=== PATIENT | female | born 1955 | race Caucasian/White ===

== ENCOUNTER 2020-02-01 13:24 | Inpatient (IN) ==
[2020-02-01] MEDS ORDERED: STERILE WATER INJ. INJ ONE ×2 (13:44→17:14)
[2020-02-01] MEDS ORDERED: GEODON IM ONE ×2 (13:44→17:14)
[2020-02-01 14:07] LABS: BASO# 0.03 X1000 (0.0-0.2); BASO% 0.2 % (0.0-0.8); EOS# 0.36 X1000 (0.0-0.7); EOS% 2.5 % (0.0-10.0); HEMATOCRIT 42.1 % (37.0-47.0); HEMOGLOBIN 13.6 g/dL (12.0-16.0); IMM GRAN# 0.07 X1000 (0.0-0.04); IMM GRAN% 0.5 % (0.0-0.5); LYMPH# 4.02 X1000 (1.2-3.4); LYMPH% 27.9 % (20.5-51.1); MCH 26.9 PG (27-31); MCHC 32.3 g/dL (33-37); MCV 83.4 FL (81-99); MONO% 8.3 % (1.7-9.3); NEUT# 8.71 X1000 (1.4-6.5); NEUT% 60.6 % (42.2-75.2); PLT 297 X1000 (130-400); RBC 5.05 XMIL (4.2-5.4); RDW 14.5 % (11.5-14.5); WBC 14.39 X1000 (4.8-10.8)
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
[2020-02-01 14:33] LABS: ACETAMINOPHEN < 1.2 ug/mL (10-30); AGAP 13; ALBUMIN 3.8 g/dL (3.5-5.0); ALKALINE PHOSPHATASE 103 U/L (32-104); BUN 12 mg/dL (8-22); CALCIUM 9.6 mg/dL (8.8-10.2); CHLORIDE 105 mmol/L (98-107); COSMO 277; CREATININE 0.4 mg/dL (0.5-0.9); ESTIMATED GFR > 60; GLUCOSE 92 mg/dL (70-104); GOT 13 U/L (10-30); GPT 14 U/L (10-36); POTASSIUM 4.1 mmol/L (3.5-5.1); SALICYLATES < 3.00 mg/dL (3-10); SODIUM 139 mmol/L (136-145); TCO2 21 mmol/L (25-35); TOTAL BILIRUBIN < 0.15 mg/dL (0.20-1.00); TOTAL PROTEIN 7.3 g/dL (6.3-8.3)
[2020-02-01 15:00] LABS: FREE T4 0.99 ng/dL (0.93-1.70); TSH 1.23 uIUmL (0.27-4.20)
--- NOTE | 2020-02-01 15:05 | Diag Imaging Result Doc PS360 ---
EXAM: CT HEAD W/O CONTRAST - 02/01/2020 HISTORY: AMS, psych? TECHNIQUE: CT head without contrast COMPARISON: 04/29/2019 FINDINGS: There is no evidence of intracranial hemorrhage, mass effect, midline shift, or hydrocephalus. There is no evidence of infarct, although acute infarcts may not be immediately visible. There is no evidence of skull fracture. Visualized portions of paranasal sinuses and mastoid air cells appear clear. IMPRESSION: No visible acute intracranial abnormality. No hemorrhage or mass effect. This exam was performed using automated exposure control, adjustment of mA or kV according to patient size, and/or use of iterative reconstruction technique. Electronically signed by Chan [employer] 02/01/2020 3:03 PM
--- NOTE | 2020-02-01 15:13 | Diag Imaging Result Doc PS360 ---
EXAM: PELVIS - 02/01/2020 HISTORY: decubitus ulcer R buttocks TECHNIQUE: AP pelvis one view COMPARISON: 04/29/2019 left hip FINDINGS: There is subtrochanteric amputation of the left femur similar to prior. There is chronic deformity of the left inferior ramus. There are no acute erosive or destructive changes identified. There is no fracture identified. IMPRESSION: Subtrochanteric amputation of left femur. Chronic deformity of left inferior pubic ramus. No visible acute bony abnormality. Electronically signed by Chan Tamayo 02/01/2020 3:11 PM
--- NOTE | 2020-02-01 15:16 | Diag Imaging Result Doc PS360 ---
EXAM: CHEST-1 VIEW - 02/01/2020 HISTORY: AMS, psych med clearance TECHNIQUE: One view chest COMPARISON: 04/29/2019 FINDINGS: The projection is somewhat lordotic. Heart size appears within normal limits. There are apparent mild COPD changes. There is mild prominence of infrahilar markings on the left. There is no dense consolidation, pleural effusion, or pneumothorax identified. IMPRESSION: Mild COPD changes. Mild infrahilar infiltrate or scarring on the left. Electronically signed by Chan Tamayo 02/01/2020 3:13 PM
[2020-02-01] MEDS ORDERED: ATIVAN PO ONE (16:08)
[2020-02-01] MEDS ORDERED: ROCEPHIN 1 GM in NS 50 ML IV ONE (16:10)
[2020-02-01 16:56] LABS: UR AMPHETAMINES QUAL NONE DETECTED (NONE DETECT); UR BARBITUATES QUAL NONE DETECTED (NONE DETECT); UR BENZODIAZEPIN QUAL PRESUMPTIVE POSITIVE (NONE DETECT); UR CANNABINOIDS QUAL NONE DETECTED (NONE DETECT); UR COCAINE QUAL NONE DETECTED (NONE DETECT); UR METHADONE QUAL NONE DETECTED (NONE DETECT); UR METHAMPHETAMINE QUAL NONE DETECTED (NONE DETECT); UR OPIATES QUAL NONE DETECTED (NONE DETECT); UR OXYCODONE QUAL PRESUMPTIVE POSITIVE (NONE DETECT); UR PCP QUAL NONE DETECTED (NONE DETECT); UR PROPOXYPHENE QUAL NONE DETECTED (NONE DETECT); UR TCA QUAL NONE DETECTED (NONE DETECT)
[2020-02-01 18:01] LABS: URINE SOURCE CATH
[2020-02-01 18:03] LABS: BILIRUBIN URINE NEGATIVE (NEGATIVE); BLOOD URINE NEGATIVE (NEGATIVE); COLOR YELLOW; GLUCOSE URINE NEGATIVE (NEGATIVE); KETONE URINE NEGATIVE (NEGATIVE); LEUKOCYTES URINE SMALL (NEGATIVE); NITRITE URINE NEGATIVE (NEGATIVE); PH URINE 7.5; PROTEIN URINE NEGATIVE (NEGATIVE); TURBIDITY URINE CLEAR (CLEAR); UROBILINOGEN URINE NORMAL (NORMAL)
[2020-02-01 18:05] LABS: UR EPITHELIAL CELLS <10 /HPF (<10); URINE BACTERIA NEGATIVE /HPF; URINE RBC <10 /HPF (<10); URINE WBC <10 /HPF (<10)
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
[2020-02-01] MEDS ORDERED: TYLENOL PO PRN (21:03)
[2020-02-01] MEDS ORDERED: ZITHROMAX 500 MG/NS 500 MG/250 ML IVPB IV SCH (21:03)
[2020-02-01] MEDS ORDERED: GEODON IM PRN (21:03)
[2020-02-01] MEDS ORDERED: STERILE WATER INJ. INJ PRN (21:03)
[2020-02-01] MEDS ORDERED: ATIVAN IV PRN (22:02)
[2020-02-01] MEDS: PERCOCET-10 PO PRN (23:49)
[2020-02-02] MEDS: DUONEB (A & A) INH SCH ×2 (00:47→06:07)
[2020-02-02] MEDS: CLOZARIL PO SCH ×2 (01:31→10:09)
[2020-02-02] MEDS: NS 1,000 ML IV SCH ×2 (04:20→11:40)
[2020-02-02] MEDS: KLONOPIN PO SCH ×5 (04:20→20:10)
[2020-02-02 06:07] LABS: BASO# 0.03 X1000 (0.0-0.2); BASO% 0.2 % (0.0-0.8); EOS# 0.44 X1000 (0.0-0.7); EOS% 3.3 % (0.0-10.0); HEMATOCRIT 41.4 % (37.0-47.0); HEMOGLOBIN 13.2 g/dL (12.0-16.0); IMM GRAN# 0.07 X1000 (0.0-0.04); IMM GRAN% 0.5 % (0.0-0.5); LYMPH# 4.88 X1000 (1.2-3.4); LYMPH% 36.6 % (20.5-51.1); MCH 26.6 PG (27-31); MCHC 31.9 g/dL (33-37); MCV 83.3 FL (81-99); MONO# 1.25 X1000 (0.11-0.59); MONO% 9.4 % (1.7-9.3); MPV 11.4 FL (7.4-10.4); NEUT# 6.65 X1000 (1.4-6.5); PLT 285 X1000 (130-400); RBC 4.97 XMIL (4.2-5.4); RDW 14.5 % (11.5-14.5); WBC 13.32 X1000 (4.8-10.8)
[2020-02-02 06:18] LABS: AGAP 13; BUN 13 mg/dL (8-22); CALCIUM 9.1 mg/dL (8.8-10.2); CHLORIDE 107 mmol/L (98-107); COSMO 279; CREATININE 0.4 mg/dL (0.5-0.9); ESTIMATED GFR > 60; GLUCOSE 84 mg/dL (70-104); SODIUM 140 mmol/L (136-145); TCO2 21 mmol/L (25-35)
[2020-02-02] MEDS ORDERED: DUONEB (A & A) INH PRN (06:52)
[2020-02-02] MEDS ORDERED: COLESTIPOL HCL 1 GM PO SCH (09:00)
[2020-02-02] MEDS ORDERED: NON-FORMULARY MED PO SCH (09:00)
[2020-02-02] MEDS ORDERED: ZOSYN 3.375 GM in NS 50 ML IV SCH (10:00)
[2020-02-02] MEDS: NON-FORMULARY MED PO SCH ×2 (10:02→20:10)
[2020-02-02] MEDS: GEODON PO SCH ×3 (10:02→20:10)
[2020-02-02] MEDS: TEGRETOL PO SCH ×4 (10:02→20:10)
[2020-02-02] MEDS: TOPAMAX PO SCH ×3 (10:02→20:10)
[2020-02-02] MEDS: HALDOL PO SCH ×3 (10:02→20:11)
[2020-02-02] MEDS: DEPAKOTE SPRINKLE PO SCH ×3 (10:02→20:10)
[2020-02-02] MEDS: COGENTIN PO SCH ×3 (10:03→20:10)
[2020-02-02] MEDS: PERCOCET-10 PO PRN ×2 (10:03→15:37)
[2020-02-02] MEDS: PEPCID PO SCH ×3 (10:03→20:10)
[2020-02-02] MEDS ORDERED: TEFLARO 600 MG in NS 250 ML IV SCH (11:00)
--- NOTE | 2020-02-02 11:37 | PROGRESS NOTE ---
DATE: 02/02/2020 SUBJECTIVE: Patient continues to be psychotic. Continues to have delusions. She reports that she is breathing much better in comparing with yesterday. She is not requiring any oxygen supplementation. OBJECTIVE: Vital Signs: Temperature 97.8 degrees, heart rate 80, respiratory rate 20, blood pressure 156/91, O2 saturation 98% on room air. General Examination: A 64-year-old female, lying in bed in no acute distress. Cardiovascular exam: S1, S2 heard. No murmurs, gallops, or rubs. Regular rate and rhythm. Respiratory exam: Clear bilaterally to auscultation. No work of breathing or using accessory muscles. Abdomen: Soft, nontender to palpation. Bowel sounds present. No organomegaly. Extremities: No clubbing, cyanosis, or edema. Peripheral pulses present in both legs. Neurological exam: Patient is lying in bed. Cranial nerves 2-12 appear grossly normal. Moves 4 extremities spontaneously. LABORATORY DATA: White cell count 13.32, hemoglobin 13.2, hematocrit 41.4, platelets 285 with normal BMP. ASSESSMENT AND PLAN: 1. Left infrahilar pneumonia. 2. Delusions. Rule out schizophrenia. Patient has been admitted to the hospital because of pneumonia. Actually the patient was feeling okay at admission, not requiring any oxygen supplementation, not having any fever and just mild elevation of white cell count. Today the white cell count is better, is 13,000, almost back to normal. Patient is on antibiotics. I think this patient now is stable medically. The patient can be discharged from the hospital with oral antibiotics. She will not need any oxygen supplementation. She is not in any respiratory distress, so she is medically stable today. The patient is actively having hallucinations and delusions; she thinks that she is the of Rafael Willis and she keeps saying some nonsense things. At this point, we are going to consult [facility] for placement for this patient. We will follow recommendations. cc: MD FEMI Garrido
[2020-02-02] MEDS ORDERED: ROCEPHIN 1 GM in NS 50 ML IV SCH (17:00)
[2020-02-02] MEDS: DESYREL PO SCH ×2 (20:10)
[2020-02-02] MEDS: OMNICEF PO SCH (20:10)
[2020-02-03] MEDS: PERCOCET-10 PO PRN ×4 (00:53→22:23)
[2020-02-03] MEDS: CLOZARIL PO SCH (00:55)
[2020-02-03 09:43] LABS: BASO# 0.05 X1000 (0.0-0.2); BASO% 0.4 % (0.0-0.8); EOS# 0.58 X1000 (0.0-0.7); EOS% 4.3 % (0.0-10.0); HEMATOCRIT 40.6 % (37.0-47.0); HEMOGLOBIN 12.9 g/dL (12.0-16.0); IMM GRAN# 0.06 X1000 (0.0-0.04); IMM GRAN% 0.4 % (0.0-0.5); LYMPH# 2.96 X1000 (1.2-3.4); MCH 26.7 PG (27-31); MCHC 31.8 g/dL (33-37); MCV 83.9 FL (81-99); MONO# 1.08 X1000 (0.11-0.59); NEUT# 8.75 X1000 (1.4-6.5); NEUT% 64.9 % (42.2-75.2); PLT 265 X1000 (130-400); RBC 4.84 XMIL (4.2-5.4); RDW 14.6 % (11.5-14.5); WBC 13.48 X1000 (4.8-10.8)
[2020-02-03] MEDS: GEODON PO SCH ×2 (09:49→20:34)
[2020-02-03] MEDS: DEPAKOTE SPRINKLE PO SCH ×2 (09:49→20:34)
[2020-02-03] MEDS: PEPCID PO SCH ×2 (09:49→20:35)
[2020-02-03] MEDS: KLONOPIN PO SCH ×3 (09:50→20:34)
[2020-02-03] MEDS: OMNICEF PO SCH ×2 (09:50→20:35)
[2020-02-03] MEDS: TOPAMAX PO SCH ×2 (09:50→21:30)
[2020-02-03] MEDS: HALDOL PO SCH ×2 (09:50→20:35)
[2020-02-03] MEDS: COGENTIN PO SCH ×2 (09:50→20:35)
[2020-02-03] MEDS: NON-FORMULARY MED PO SCH ×2 (09:51→20:33)
[2020-02-03 09:56] LABS: AGAP 11; BUN 14 mg/dL (8-22); CALCIUM 8.9 mg/dL (8.8-10.2); CHLORIDE 107 mmol/L (98-107); COSMO 280; CREATININE 0.4 mg/dL (0.5-0.9); ESTIMATED GFR > 60; GLUCOSE 95 mg/dL (70-104); POTASSIUM 4.2 mmol/L (3.5-5.1); SODIUM 140 mmol/L (136-145); TCO2 22 mmol/L (25-35)
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
--- NOTE | 2020-02-03 14:04 | Diag Imaging Result Doc PS360 ---
EXAM: CHEST-PORTABLE 02/03/2020 HISTORY: Repeat for psych placement TECHNIQUE: AP portable erect at 1452 COMMENT: There is no evidence of acute cardiac or pulmonary disease. Compared to 02/01/2020 there has been no significant change. IMPRESSION: No evidence of acute disease. Electronically signed by Jonh Morales 02/03/2020 2:02 PM
[2020-02-03] MEDS: TEGRETOL PO SCH ×3 (14:56→20:34)
[2020-02-03] MEDS: PATIENT'S OWN MED PO SCH (15:34)
--- NOTE | 2020-02-03 15:58 | EKG Report ---
Test Performed on : 02/03/2020 2:32:44 PM Test Reason : CP Blood Pressure : / mmHG Vent. Rate : 089 BPM Atrial Rate : 089 BPM P-R Int : 176 ms QRS Dur : 092 ms QT Int : 358 ms P-R-T Axes : 067 058 070 degrees QTc Int : 435 ms Normal sinus rhythm. Normal ECG When compared with ECG of 29-APR-2019 20:46, No significant change was found Confirmed by Pravin Merlos MD ([id number]) on 02/04/2020 6:50:00 PM
[2020-02-03] MEDS: DESYREL PO SCH (20:34)
[2020-02-04] MEDS: PATIENT'S OWN MED PO SCH ×3 (01:17→22:44)
[2020-02-04 05:38] LABS: BASO# 0.04 X1000 (0.0-0.2); BASO% 0.3 % (0.0-0.8); EOS# 0.51 X1000 (0.0-0.7); EOS% 3.7 % (0.0-10.0); HEMOGLOBIN 11.9 g/dL (12.0-16.0); IMM GRAN# 0.03 X1000 (0.0-0.04); IMM GRAN% 0.2 % (0.0-0.5); LYMPH# 3.83 X1000 (1.2-3.4); LYMPH% 27.5 % (20.5-51.1); MCH 26.1 PG (27-31); MCHC 31.3 g/dL (33-37); MCV 83.3 FL (81-99); MONO# 1.05 X1000 (0.11-0.59); MONO% 7.5 % (1.7-9.3); MPV 11.4 FL (7.4-10.4); NEUT# 8.47 X1000 (1.4-6.5); NEUT% 60.8 % (42.2-75.2); PLT 251 X1000 (130-400); RBC 4.56 XMIL (4.2-5.4); RDW 14.4 % (11.5-14.5); WBC 13.93 X1000 (4.8-10.8)
[2020-02-04 05:49] LABS: AGAP 12; BUN 20 mg/dL (8-22); CALCIUM 9.1 mg/dL (8.8-10.2); CHLORIDE 103 mmol/L (98-107); COSMO 276; CREATININE 0.5 mg/dL (0.5-0.9); ESTIMATED GFR > 60; GLUCOSE 92 mg/dL (70-104); POTASSIUM 3.9 mmol/L (3.5-5.1); SODIUM 137 mmol/L (136-145); TCO2 23 mmol/L (25-35)
--- NOTE | 2020-02-04 10:23 | PROGRESS NOTE ---
DATE: 02/04/2020 SUBJECTIVE: The patient has been sleeping this morning. Apparently she has not been able to sleep well last night. No other complaints. Apparently, she continues to be psychotic. OBJECTIVE: Vital Signs: Temperature 97.8 degrees, heart rate 97, respiratory rate 18, blood pressure 138/74, O2 saturation 97% on room air. On examination this is a 64-year-old female lying in bed, in no acute distress. Cardiovascular: S1, S2 heard. No murmurs, gallops, or rubs. Regular rate and rhythm. Respiratory: Clear bilaterally to auscultation. No work of breathing or using accessory muscles. Abdomen: Soft, nontender to palpation. Bowel sounds present. No organomegaly. Extremities: Left myqqf-ghd-[id number] amputation noted. Neurological: Patient is sleepy this morning, but moves 4 extremities spontaneously. LABORATORY DATA: White cell count 13.93, hemoglobin 11.9, hematocrit 38.0, platelets 251,000 with normal BMP. The x-ray from chest today showed no evidence of acute disease, compared with previous x-ray there has not been any significant change. ASSESSMENT: 1. Left infrahilar pneumonia. 2. Delusions/schizophrenia. PLAN: At this point, patient is medically stable. Will continue with oral antibiotics, in this case Cefdinir 300 mg PO bid, she is stable. Unfortunately she continues to be actively delusional and psychotic. At this point, considering that because [facility] refused to take her even though she is actively delusional and psychotic, we are looking for other psychiatric units. In the meantime will continue to monitor this patient closely here. cc: MD FEMI Garrido
[2020-02-04] MEDS: NON-FORMULARY MED PO SCH ×2 (11:30→20:34)
[2020-02-04] MEDS: GEODON PO SCH ×2 (11:31→20:32)
[2020-02-04] MEDS: TOPAMAX PO SCH ×2 (11:31→20:33)
[2020-02-04] MEDS: HALDOL PO SCH ×2 (11:31→20:32)
[2020-02-04] MEDS: DEPAKOTE SPRINKLE PO SCH ×2 (11:32→20:33)
[2020-02-04] MEDS: PERCOCET-10 PO PRN (11:32)
[2020-02-04] MEDS: TEGRETOL PO SCH ×3 (11:32→20:32)
[2020-02-04] MEDS: PEPCID PO SCH ×2 (11:32→20:32)
[2020-02-04] MEDS: OMNICEF PO SCH ×2 (11:32→20:33)
[2020-02-04] MEDS: KLONOPIN PO SCH ×3 (11:32→20:32)
[2020-02-04] MEDS: COGENTIN PO SCH ×2 (11:32→20:33)
[2020-02-04] MEDS: DESYREL PO SCH (20:32)
[2020-02-05] MEDS: PERCOCET-10 PO PRN ×4 (00:23→21:31)
[2020-02-05 05:45] LABS: BASO# 0.04 X1000 (0.0-0.2); BASO% 0.3 % (0.0-0.8); EOS# 0.31 X1000 (0.0-0.7); EOS% 2.2 % (0.0-10.0); HEMATOCRIT 40.8 % (37.0-47.0); HEMOGLOBIN 13.4 g/dL (12.0-16.0); IMM GRAN# 0.04 X1000 (0.0-0.04); IMM GRAN% 0.3 % (0.0-0.5); LYMPH# 2.98 X1000 (1.2-3.4); LYMPH% 20.7 % (20.5-51.1); MCH 27.2 PG (27-31); MCHC 32.8 g/dL (33-37); MCV 82.9 FL (81-99); MONO# 1.07 X1000 (0.11-0.59); MONO% 7.4 % (1.7-9.3); MPV 10.7 FL (7.4-10.4); NEUT# 9.94 X1000 (1.4-6.5); NEUT% 69.1 % (42.2-75.2); PLT 255 X1000 (130-400); RBC 4.92 XMIL (4.2-5.4); RDW 14.3 % (11.5-14.5); WBC 14.38 X1000 (4.8-10.8)
[2020-02-05 05:59] LABS: AGAP 15; BUN 10 mg/dL (8-22); CALCIUM 9.3 mg/dL (8.8-10.2); CHLORIDE 98 mmol/L (98-107); COSMO 262; CREATININE 0.4 mg/dL (0.5-0.9); ESTIMATED GFR > 60; GLUCOSE 104 mg/dL (70-104); POTASSIUM 3.6 mmol/L (3.5-5.1); SODIUM 131 mmol/L (136-145); TCO2 18 mmol/L (25-35)
[2020-02-05] MEDS: TOPAMAX PO SCH ×2 (08:05→20:48)
[2020-02-05] MEDS: TEGRETOL PO SCH ×3 (08:05→20:48)
[2020-02-05] MEDS: OMNICEF PO SCH ×2 (08:05→20:47)
[2020-02-05] MEDS: GEODON PO SCH ×2 (08:05→20:46)
[2020-02-05] MEDS: COGENTIN PO SCH ×2 (08:05→20:28)
[2020-02-05] MEDS: DEPAKOTE SPRINKLE PO SCH ×2 (08:06→20:28)
[2020-02-05] MEDS: HALDOL PO SCH ×2 (08:06→20:46)
[2020-02-05] MEDS: KLONOPIN PO SCH ×3 (08:07→20:47)
[2020-02-05] MEDS: NON-FORMULARY MED PO SCH ×2 (08:07→20:47)
[2020-02-05] MEDS: PATIENT'S OWN MED PO SCH ×2 (08:22→20:47)
[2020-02-05] MEDS: PEPCID PO SCH ×2 (08:23→20:47)
--- NOTE | 2020-02-05 10:35 | PROGRESS NOTE ---
DATE: 02/05/2020 SUBJECTIVE: Patient reports feeling fine. Denies any complaint at this time. OBJECTIVE: Vital Signs: Temperature 98.7 degrees, heart rate 86, respiratory rate 20, blood pressure 155/99, O2 saturation 98 on room air. General: This is a well developed 65-year-old female lying in bed, in no acute distress. Cardiovascular: S1 and S2 heard. No murmurs, gallops, or rubs. Regular rate and rhythm. Respiratory: Clear bilaterally to auscultation. No work of breathing or using accessory muscles. Abdomen: Soft, nontender to palpation. Bowel sounds present. No organomegaly. Extremity: Left [id number]-[id number] amputation noted. Neurological: Patient is alert and awake. The patient is still psychotic. Moves 4 extremities spontaneously. LABORATORY DATA: White cell count 14.38, hemoglobin 13.4, hematocrit 40.8, platelets 255,000. Sodium 131. ASSESSMENT AND PLAN: 1. Left infrahilar pneumonia. 2. Delusions/schizophrenia. 3. At this point, patient is medically stable. Continue with Cefdinir 300 mg p.o. 2 times per day. We will continue to look for psychiatry unit to transfer this patient because she is actively psychotic. We will continue to monitor this patient closely. cc: Jose Watson MD [facility]hena
[2020-02-05] MEDS: DESYREL PO SCH (20:46)
[2020-02-06 11:24] LABS: BASO# 0.03 X1000 (0.0-0.2); BASO% 0.2 % (0.0-0.8); EOS# 0.32 X1000 (0.0-0.7); EOS% 2.5 % (0.0-10.0); HEMATOCRIT 41.9 % (37.0-47.0); HEMOGLOBIN 13.6 g/dL (12.0-16.0); IMM GRAN# 0.02 X1000 (0.0-0.04); IMM GRAN% 0.2 % (0.0-0.5); LYMPH# 2.17 X1000 (1.2-3.4); LYMPH% 17.3 % (20.5-51.1); MCH 26.3 PG (27-31); MCHC 32.5 g/dL (33-37); MCV 80.9 FL (81-99); MONO# 0.81 X1000 (0.11-0.59); MONO% 6.5 % (1.7-9.3); MPV 10.9 FL (7.4-10.4); NEUT% 73.3 % (42.2-75.2); PLT 267 X1000 (130-400); RBC 5.18 XMIL (4.2-5.4); RDW 14.2 % (11.5-14.5); WBC 12.55 X1000 (4.8-10.8)
[2020-02-06] MEDS: COGENTIN PO SCH ×3 (11:25→20:06)
[2020-02-06] MEDS: DEPAKOTE SPRINKLE PO SCH ×3 (11:25→20:06)
[2020-02-06] MEDS: GEODON PO SCH ×3 (11:25→20:06)
[2020-02-06] MEDS: NON-FORMULARY MED PO SCH ×3 (11:26→20:08)
[2020-02-06] MEDS: PATIENT'S OWN MED PO SCH ×2 (11:26→20:08)
[2020-02-06] MEDS: HALDOL PO SCH ×3 (11:26→20:07)
[2020-02-06] MEDS: KLONOPIN PO SCH ×4 (11:26→20:07)
[2020-02-06] MEDS: OMNICEF PO SCH ×3 (11:26→20:08)
[2020-02-06] MEDS: PEPCID PO SCH ×3 (11:27→20:08)
[2020-02-06] MEDS: TOPAMAX PO SCH ×3 (11:27→20:09)
[2020-02-06] MEDS: TEGRETOL PO SCH ×4 (11:27→20:09)
--- NOTE | 2020-02-06 11:31 | PROGRESS NOTE ---
DATE: 02/06/2020 SUBJECTIVE: The patient reports feeling okay. No complaints at this time. OBJECTIVE: Vital Signs: Temperature 98 degrees, heart rate 87, respiratory rate 18, blood pressure 169/93, O2 saturation 97% on room air. General: This is a chronically ill-looking, 64- year-old, female, lying in bed in no acute distress. Cardiovascular: S1, S2 heard. No murmurs, gallops, or rubs. Regular rate and rhythm. Respiratory: Clear bilaterally to auscultation. No work of breathing or using accessory muscles. Abdomen: Soft, nontender to palpation. Bowel sounds present. No organomegaly. Extremities: Left xiwki-url-wdub amputation noted. Neurological: The patient is alert and awake. He is still psychotic. Moves all 4 extremities spontaneously. LABORATORY DATA: The patient refused to have labs this morning. ASSESSMENT: 1. Left infrahilar pneumonia. 2. Delusions/schizophrenia. PLAN: At this point, the patient continues to be medically stable. She refused to have IV medications at presentation when she came to the hospital. She said that she is and she cannot have any IV medications. Currently, will continue with cefdinir 300 mg 1 tablet p.o. twice daily. At this point, she is medically stable as we mentioned before, and we will continue to look for psychiatry unit to transfer this patient because she continues to be actively psychotic. Will continue to monitor this patient closely here. cc: Jose Watson MD
[2020-02-06 11:45] LABS: AGAP 11; BUN 10 mg/dL (8-22); CALCIUM 9.4 mg/dL (8.8-10.2); CHLORIDE 102 mmol/L (98-107); COSMO 268; CREATININE 0.4 mg/dL (0.5-0.9); ESTIMATED GFR > 60; GLUCOSE 104 mg/dL (70-104); POTASSIUM 4.1 mmol/L (3.5-5.1); SODIUM 134 mmol/L (136-145); TCO2 22 mmol/L (25-35)
[2020-02-06] MEDS: PERCOCET-10 PO PRN ×2 (15:29→21:30)
[2020-02-06] MEDS: DESYREL PO SCH (20:06)
[2020-02-07] MEDS ORDERED: LOPRESSOR PO SCH (09:00)
[2020-02-07] MEDS ORDERED: VITAMIN D PO SCH (09:00)
[2020-02-07] MEDS ORDERED: CYMBALTA PO SCH (09:00)
[2020-02-07] MEDS: KLONOPIN PO SCH ×2 (09:40→15:05)
[2020-02-07] MEDS: GEODON PO SCH (09:40)
[2020-02-07] MEDS: HALDOL PO SCH (09:40)
[2020-02-07] MEDS: DEPAKOTE SPRINKLE PO SCH (09:40)
[2020-02-07] MEDS: TEGRETOL PO SCH ×2 (09:40→15:05)
[2020-02-07] MEDS: PEPCID PO SCH (09:40)
[2020-02-07] MEDS: OMNICEF PO SCH (09:40)
[2020-02-07] MEDS: TOPAMAX PO SCH (09:41)
[2020-02-07] MEDS: NON-FORMULARY MED PO SCH (09:41)
[2020-02-07] MEDS: COGENTIN PO SCH (09:41)
[2020-02-07 09:44] LABS: BASO# 0.04 X1000 (0.0-0.2); BASO% 0.2 % (0.0-0.8); EOS# 0.36 X1000 (0.0-0.7); EOS% 2.2 % (0.0-10.0); HEMATOCRIT 43.2 % (37.0-47.0); HEMOGLOBIN 14.2 g/dL (12.0-16.0); IMM GRAN# 0.03 X1000 (0.0-0.04); IMM GRAN% 0.2 % (0.0-0.5); LYMPH# 3.08 X1000 (1.2-3.4); MCH 26.8 PG (27-31); MCHC 32.9 g/dL (33-37); MCV 81.7 FL (81-99); MPV 10.9 FL (7.4-10.4); NEUT# 11.43 X1000 (1.4-6.5); NEUT% 70.4 % (42.2-75.2); PLT 244 X1000 (130-400); RBC 5.29 XMIL (4.2-5.4); RDW 14.1 % (11.5-14.5); WBC 16.24 X1000 (4.8-10.8)
[2020-02-07 10:03] LABS: AGAP 13; BUN 11 mg/dL (8-22); CALCIUM 9.6 mg/dL (8.8-10.2); CHLORIDE 98 mmol/L (98-107); COSMO 264; CREATININE 0.5 mg/dL (0.5-0.9); ESTIMATED GFR > 60; GLUCOSE 99 mg/dL (70-104); POTASSIUM 4.5 mmol/L (3.5-5.1); SODIUM 132 mmol/L (136-145); TCO2 21 mmol/L (25-35)
[2020-02-07] MEDS: PERCOCET-10 PO PRN ×2 (10:42→16:53)
[2020-02-07] MEDS: PATIENT'S OWN MED PO SCH (15:50)
[2020-02-07 16:22] VITALS: BP 105/62
--- NOTE | 2020-02-07 18:37 | PROGRESS NOTE ---
DATE: 02/07/2020 SUBJECTIVE: The patient has no new complaints. States she is feeling okay. PHYSICAL EXAM: Vital signs: Temperature 98.0, pulse 51, respiratory 20, BP 136/78, saturating 99% on room air. General: The patient is awake, pleasant, in no distress. HEENT: Normocephalic. Neck: Supple. Cardiovascular: Regular rate. Chest: Clear, nonlabored. No wheezing. Abdomen: Soft, nondistended. Extremities: Moves all extremities. Neurologic: No changes. ASSESSMENT: 1. Left infrahilar pneumonia. She currently is on Omnicef. We will continue this twice daily for a total 10 day course. 2. Delusions with schizophrenia. We will consult [facility] to assist in placement. cc: Ancelmo Grover MD
--- NOTE | 2020-02-08 07:06 | DISCHARGE SUMMARY ---
ADMISSION DATE: 02/01/2020 DISCHARGE DATE: 02/07/2020 DISCHARGE DIAGNOSES: 1. Left infrahilar pneumonia, improving. We will continue antibiotics until 02/11/2020. 2. Schizophrenia with delusions. CONSULTATIONS: Renetta Senior. PROCEDURES: None. BRIEF HOSPITAL COURSE: Patient was admitted to the hospital with a diagnosis of pneumonia. Unfortunately, patient refused IV antibiotics because she was adamant that it was going to hurt her current . Thankfully, she did improve with oral antibiotics. On discharge, she is still having delusions and still is concerned that she is , as well as other delusions. DISPOSITION: Patient will be discharged to [facility] for further inpatient psychiatric treatment. She will continue all of her home antibiotics as listed, as well as Omnicef which was the only thing changed during the hospital stay. She will continue Omnicef for a total 10-day course. TIME SPENT: Greater than 30 minutes was spent in total care. cc: Ancelmo Grover MD
== END 2020-02-07 19:05 | DRG 194 ==
LOC: P.ED 13:24 → P.MEDSURG 19:26 → SUATTDRO 19:26 → P.MEDSURG 20:59
PROVIDERS: ATTEND Family Medicine